=== PATIENT | male | born 1950 | race African-American/Black ===

== ENCOUNTER → 2017-04-19 | Outpatient (CLI) | payer MEDICARE ==
[2017-04-19 12:22] LABS: HEMATOCRIT 47.1 % (42.0-52.0); HEMOGLOBIN 15.1 g/dl (14.0-18.0); MEAN CORPUSCULAR HEMOGLOBIN 28.1 pg (27.0-33.0); MEAN CORPUSCULAR HGB CONC 32.1 g/dl (32.0-36.5); MEAN CORPUSCULAR VOLUME 87.7 fl (80.0-96.0); PLATELET COUNT, AUTOMATED 217 10^3/uL (150-450); RED BLOOD COUNT 5.37 10^6/uL (4.30-6.10); RED CELL DISTRIBUTION WIDTH 13.3 % (11.5-14.5); WHITE BLOOD COUNT 8.7 10^3/uL (4.0-10.0)
[2017-04-19 12:57] LABS: TESTOSTERONE 82 NG/DL (241-827)
[2017-04-19 13:15] LABS: ALBUMIN 3.9 GM/DL (3.2-5.2); ALBUMIN/GLOBULIN RATIO 1.03 (1.00-1.93); ALKALINE PHOSPHATASE 86 U/L (45-117); ALT/SGPT 27 U/L (12-78); ANION GAP 8 MEQ/L (8-16); AST/SGOT 22 U/L (7-37); BILIRUBIN,TOTAL 0.7 MG/DL (0.2-1.0); BLOOD UREA NITROGEN 23 MG/DL (7-18); CALCIUM LEVEL 9.1 MG/DL (8.8-10.2); CARBON DIOXIDE LEVEL 28 MEQ/L (21-32); CHLORIDE LEVEL 107 MEQ/L (98-107); CHOLESTEROL LEVEL 239 MG/DL (<200); CHOLESTEROL RISK RATIO 3.567 (<5); CREATININE FOR GFR 1.34 MG/DL (0.70-1.30); GLOMERULAR FILTRATION RATE > 60.0 (>49); GLUCOSE, FASTING 91 MG/DL (80-110); HDL CHOLESTEROL 67 MG/DL (>40); NON-HDL-C 172 MG/DL; POTASSIUM SERUM 3.9 MEQ/L (3.5-5.1); PROSTATIC SPECIFIC AG MONITOR 0.45 NG/ML (< 4.0); SODIUM LEVEL 143 MEQ/L (136-145); THYROID STIMULATING HORMONE 0.775 uIU/ML (0.358-3.740); TOTAL PROTEIN 7.7 GM/DL (6.4-8.2); TRIGLYCERIDES LEVEL 100 MG/DL (<150)
[2017-04-19 13:32] LABS: TOTAL 25(OH) VITAMIN D 9.8 NG/ML (30.0-100.0)
[2017-04-19 13:34] LABS: ESTIMATED AVERAGE GLUCOSE 143 MG/DL (60-110); HEMOGLOBIN A1c 6.6 %
== END ==
LOC: M LAB 11:13
DX: I10 Essential (primary) hypertension (principal); R53.83 Other fatigue; N40.0 Benign prostatic hyperplasia without lower urinary tract symptoms
CPT/HCPCS: 71046

== ENCOUNTER → 2017-08-07 | Outpatient (CLI) | payer MEDICARE ==
[2017-08-07 16:05] LABS: PROSTATIC SPECIFIC AG MONITOR 0.73 NG/ML (< 4.0)
[2017-08-07 16:45] LABS: TESTOSTERONE 918 NG/DL (241-827)
== END ==
LOC: M LAB 14:25
DX: R53.83 Other fatigue (principal); N40.0 Benign prostatic hyperplasia without lower urinary tract symptoms; E29.1 Testicular hypofunction
CPT/HCPCS: 84403

== ENCOUNTER → 2018-05-28 | Outpatient (CLI) | payer MEDICARE ==
[2018-05-28 10:37] LABS: PROSTATIC SPECIFIC AG MONITOR 0.74 NG/ML (< 4.00)
== END ==
LOC: M LAB 09:22
PROVIDERS: ATTEND Family Medicine
DX: E29.1 Testicular hypofunction (principal)
CPT/HCPCS: 36415; 84403; G0103

== ENCOUNTER → 2018-11-11 | Outpatient (CLI) | payer MEDICARE ==
[2018-11-11 10:53] LABS: PROSTATIC SPECIFIC AG MONITOR 0.85 NG/ML (< 4.00)
== END ==
LOC: M LAB 09:39
PROVIDERS: ATTEND Family Medicine
DX: E29.1 Testicular hypofunction (principal)

== ENCOUNTER → 2019-02-03 | Outpatient (CLI) | payer MEDICARE ==
--- NOTE | 2019-02-03 12:49 | REP ---
Six views lumbar spine: 02/03/2019. Indication: Low back pain. Comparison: 07/18/2011. Findings: There is no acute fracture, subluxation or dislocation. No osseous destructive lesions are detected. Osseous alignment is anatomic. Impression: No acute osseous injury of the lumbar spine. Electronically Signed by Lester Lyn DO 02/03/2019 12:40 P
== END ==
LOC: M RAD 10:12
PROVIDERS: ATTEND Family Medicine
DX: M54.5 Low back pain (principal)

== ENCOUNTER → 2019-02-17 | Outpatient (CLI) | payer MEDICARE ==
[2019-02-17 11:19] LABS: PROSTATIC SPECIFIC AG MONITOR 0.94 NG/ML (< 4.00)
== END ==
LOC: M LAB 10:04
PROVIDERS: ATTEND Family Medicine
DX: R53.83 Other fatigue (principal); N40.0 Benign prostatic hyperplasia without lower urinary tract symptoms; E03.9 Hypothyroidism, unspecified

== ENCOUNTER → 2019-05-26 | Outpatient (CLI) | payer MEDICARE ==
--- NOTE | 2019-05-26 10:58 | REP ---
Clinical: Back pain. Sciatica. Technique: AP, lateral, bilateral oblique and coned-down views of the lumbosacral spine. Findings: Alignment and lordosis maintained without acute fracture / compression injury or subluxation. Moderate/early advanced multilevel degenerative changes include endplate sclerosis, osteophytosis, and hypertrophic facet changes. Disc space narrowing at L5-S1 is also appreciated. Impression: Moderate/early advanced multilevel degenerative spondylosis Electronically Signed by Jd Vaz MD 05/26/2019 10:49 A
== END ==
LOC: M RAD 09:53
PROVIDERS: ATTEND Family Medicine
DX: M47.816 Spondylosis without myelopathy or radiculopathy, lumbar region (principal)

== ENCOUNTER → 2020-03-04 | Outpatient (CLI) | payer MEDICARE ==
[2020-03-04 12:44] LABS: HEMATOCRIT 60.3 % (42.0-52.0); HEMOGLOBIN 19.2 g/dl (13.5-17.5); MEAN CORPUSCULAR HEMOGLOBIN 28.6 pg (27.0-33.0); MEAN CORPUSCULAR HGB CONC 31.8 g/dl (32.0-36.5); MEAN CORPUSCULAR VOLUME 89.9 fl (80.0-96.0); PLATELET COUNT, AUTOMATED 181 10^3/uL (150-450); RED BLOOD COUNT 6.71 10^6/uL (4.30-6.10); WHITE BLOOD COUNT 8.4 10^3/uL (4.0-10.0)
[2020-03-04 13:08] LABS: ALBUMIN 3.8 GM/DL (3.2-5.2); ALT/SGPT 30 U/L (12-78); BILIRUBIN,TOTAL 0.8 MG/DL (0.2-1.0); BLOOD UREA NITROGEN 20 MG/DL (7-18); CALCIUM LEVEL 9.3 MG/DL (8.8-10.2); CARBON DIOXIDE LEVEL 28 MEQ/L (21-32); CHLORIDE LEVEL 107 MEQ/L (98-107); CHOLESTEROL LEVEL 263 MG/DL (<200); CHOLESTEROL RISK RATIO 4.534 (<5); CREATININE FOR GFR 1.48 MG/DL (0.70-1.30); GLOMERULAR FILTRATION RATE > 60.0 (>49); GLUCOSE, FASTING 86 MG/DL (70-100); HDL CHOLESTEROL 58 MG/DL (>40); LDL CHOLESTEROL 191 MG/DL (<100); NON-HDL-C 205 MG/DL; POTASSIUM SERUM 4.1 MEQ/L (3.5-5.1); PROSTATIC SPECIFIC AG MONITOR 0.81 NG/ML (< 4.00); SODIUM LEVEL 141 MEQ/L (136-145); TESTOSTERONE 991 NG/DL (241-827); TOTAL PROTEIN 7.4 GM/DL (6.4-8.2); TRIGLYCERIDES LEVEL 72 MG/DL (<150)
== END ==
LOC: M LAB 11:48
PROVIDERS: ATTEND Family Medicine
DX: I10 Essential (primary) hypertension (principal); R53.83 Other fatigue; E03.9 Hypothyroidism, unspecified; N40.0 Benign prostatic hyperplasia without lower urinary tract symptoms

== ENCOUNTER → 2020-05-12 | Outpatient (CLI) | payer MEDICARE | LOC: M LAB 11:55 | PROVIDERS: ATTEND Family Medicine | DX: M54.40 Lumbago with sciatica, unspecified side (principal); Z79.899 Other long term (current) drug therapy ==

== ENCOUNTER → 2020-07-12 | Outpatient (CLI) | payer MEDICARE ==
[2020-07-12 12:19] LABS: HEMATOCRIT 49.1 % (42.0-52.0); HEMOGLOBIN 15.5 g/dl (13.5-17.5); MEAN CORPUSCULAR HEMOGLOBIN 28.2 pg (27.0-33.0); MEAN CORPUSCULAR HGB CONC 31.6 g/dl (32.0-36.5); MEAN CORPUSCULAR VOLUME 89.4 fl (80.0-96.0); PLATELET COUNT, AUTOMATED 191 10^3/uL (150-450); RED BLOOD COUNT 5.49 10^6/uL (4.30-6.10); WHITE BLOOD COUNT 7.7 10^3/uL (4.0-10.0)
[2020-07-12 12:53] LABS: ALBUMIN 3.8 GM/DL (3.2-5.2); ALT/SGPT 26 U/L (12-78); BILIRUBIN,TOTAL 0.4 MG/DL (0.2-1.0); BLOOD UREA NITROGEN 15 MG/DL (7-18); CALCIUM LEVEL 9.5 MG/DL (8.8-10.2); CARBON DIOXIDE LEVEL 29 MEQ/L (21-32); CHLORIDE LEVEL 107 MEQ/L (98-107); CHOLESTEROL LEVEL 252 MG/DL (<200); CHOLESTEROL RISK RATIO 3.761 (<5); CREATININE FOR GFR 1.39 MG/DL (0.70-1.30); GLOMERULAR FILTRATION RATE > 60.0 (>49); GLUCOSE, FASTING 86 MG/DL (70-100); HDL CHOLESTEROL 67 MG/DL (>40); LDL CHOLESTEROL 165 MG/DL (<100); NON-HDL-C 185 MG/DL; POTASSIUM SERUM 3.8 MEQ/L (3.5-5.1); PROSTATIC SPECIFIC AG MONITOR 0.54 NG/ML (< 4.00); SODIUM LEVEL 141 MEQ/L (136-145); TESTOSTERONE 435 NG/DL (241-827); TOTAL PROTEIN 7.4 GM/DL (6.4-8.2); TRIGLYCERIDES LEVEL 102 MG/DL (<150)
[2020-07-12 13:28] LABS: HEMOGLOBIN A1c 6.3 %
== END ==
LOC: M LAB 11:41
PROVIDERS: ATTEND Family Medicine
DX: R53.83 Other fatigue (principal); I10 Essential (primary) hypertension; E11.9 Type 2 diabetes mellitus without complications; N40.0 Benign prostatic hyperplasia without lower urinary tract symptoms

== ENCOUNTER → 2021-01-07 | Outpatient (CLI) | payer MEDICARE ==
[2021-01-07 12:16] LABS: HEMATOCRIT 53.5 % (42.0-52.0); HEMOGLOBIN 16.9 g/dl (13.5-17.5); MEAN CORPUSCULAR HGB CONC 31.6 g/dl (32.0-36.5); MEAN CORPUSCULAR VOLUME 85.6 fl (80.0-96.0); PLATELET COUNT, AUTOMATED 198 10^3/uL (150-450); RED BLOOD COUNT 6.25 10^6/uL (4.30-6.10); WHITE BLOOD COUNT 9.1 10^3/uL (4.0-10.0)
[2021-01-07 12:55] LABS: ALBUMIN 3.8 GM/DL (3.2-5.2); ALT/SGPT 35 U/L (12-78); BILIRUBIN,TOTAL 0.6 MG/DL (0.2-1.0); BLOOD UREA NITROGEN 19 MG/DL (7-18); CALCIUM LEVEL 9.6 MG/DL (8.8-10.2); CARBON DIOXIDE LEVEL 30 MEQ/L (21-32); CHLORIDE LEVEL 107 MEQ/L (98-107); CHOLESTEROL LEVEL 252 MG/DL (<200); CHOLESTEROL RISK RATIO 3.937 (<5); CREATININE FOR GFR 1.38 MG/DL (0.70-1.30); GLOMERULAR FILTRATION RATE > 60.0 (>49); GLUCOSE, FASTING 77 MG/DL (70-100); HDL CHOLESTEROL 64 MG/DL (>40); LDL CHOLESTEROL 168 MG/DL (<100); NON-HDL-C 188 MG/DL; POTASSIUM SERUM 4.2 MEQ/L (3.5-5.1); PROSTATIC SPECIFIC AG MONITOR 0.68 NG/ML (< 4.00); SODIUM LEVEL 143 MEQ/L (136-145); TESTOSTERONE 747 NG/DL (241-827); TOTAL 25(OH) VITAMIN D 72.1 NG/ML (30.0-100.0); TOTAL PROTEIN 7.4 GM/DL (6.4-8.2); TRIGLYCERIDES LEVEL 98 MG/DL (<150)
[2021-01-07 12:58] LABS: HEMOGLOBIN A1c 6.1 %
== END ==
LOC: M LAB 11:23
PROVIDERS: ATTEND Family Medicine
DX: E03.9 Hypothyroidism, unspecified (principal); R53.83 Other fatigue; I10 Essential (primary) hypertension; Z79.899 Other long term (current) drug therapy

== ENCOUNTER → 2021-10-11 | Outpatient (CLI) | payer MEDICARE ==
[2021-10-11 09:42] LABS: HEMATOCRIT 57.4 % (42.0-52.0); HEMOGLOBIN 18.3 g/dl (13.5-17.5); MEAN CORPUSCULAR HEMOGLOBIN 29.5 pg (27.0-33.0); MEAN CORPUSCULAR HGB CONC 31.9 g/dl (32.0-36.5); MEAN CORPUSCULAR VOLUME 92.4 fl (80.0-96.0); PLATELET COUNT, AUTOMATED 182 10^3/uL (150-450); RED BLOOD COUNT 6.21 10^6/uL (4.30-6.10); WHITE BLOOD COUNT 7.8 10^3/uL (4.0-10.0)
[2021-10-11 10:45] LABS: ALBUMIN 3.7 GM/DL (3.2-5.2); ALT/SGPT 31 U/L (12-78); BILIRUBIN,TOTAL 0.6 MG/DL (0.2-1.0); BLOOD UREA NITROGEN 20 MG/DL (7-18); CALCIUM LEVEL 9.5 MG/DL (8.8-10.2); CARBON DIOXIDE LEVEL 27 MEQ/L (21-32); CHLORIDE LEVEL 113 MEQ/L (98-107); CHOLESTEROL LEVEL 263 MG/DL (<200); CREATININE FOR GFR 1.35 MG/DL (0.70-1.30); GLOMERULAR FILTRATION RATE > 60.0 (>42); GLUCOSE, FASTING 96 MG/DL (70-100); HDL CHOLESTEROL 54 MG/DL (>40); LDL CHOLESTEROL 186 MG/DL (<100); NON-HDL-C 209 MG/DL; POTASSIUM SERUM 4.4 MEQ/L (3.5-5.1); PROSTATIC SPECIFIC AG MONITOR 1.23 NG/ML (< 4.00); SODIUM LEVEL 146 MEQ/L (136-145); THYROID STIMULATING HORMONE 0.724 uIU/ML (0.358-3.740); TRIGLYCERIDES LEVEL 116 MG/DL (<150)
[2021-10-11 10:54] LABS: HEMOGLOBIN A1c 5.8 %
[2021-10-11 11:39] LABS: TESTOSTERONE 507 NG/DL (241-827)
== END ==
LOC: M LAB 08:55
PROVIDERS: ATTEND Family Medicine
DX: I10 Essential (primary) hypertension (principal); R97.20 Elevated prostate specific antigen [PSA]

== ENCOUNTER → 2022-01-20 | Outpatient (CLI) | payer MEDICARE ==
[~2022-01-20] MED LIST: ISOVUE-300 61% 50ML VIAL As Ordered ONE; LIDOCAINE 1% MDV 20ML VIAL As Ordered ONE; TRIAMCINOLONE ACETONIDE SUSP 40 MG/ML VIAL (J3301) As Ordered ONE
== END ==
LOC: M RAD 10:17
PROVIDERS: ATTEND Orthopaedic Surgery
DX: M16.0 Bilateral primary osteoarthritis of hip (principal)
CPT/HCPCS: 76000; J3301; Q9967

== ENCOUNTER → 2022-05-10 | Outpatient (CLI) | payer MEDICARE ==
[2022-05-10 10:50] LABS: HEMATOCRIT 57.4 % (42.0-52.0); HEMOGLOBIN 18.4 g/dl (13.5-17.5); MEAN CORPUSCULAR HEMOGLOBIN 29.6 pg (27.0-33.0); MEAN CORPUSCULAR HGB CONC 32.1 g/dl (32.0-36.5); MEAN CORPUSCULAR VOLUME 92.4 fl (80.0-96.0); PLATELET COUNT, AUTOMATED 177 10^3/uL (150-450); RED BLOOD COUNT 6.21 10^6/uL (4.30-6.10); WHITE BLOOD COUNT 8.3 10^3/uL (4.0-10.0)
[2022-05-10 11:10] LABS: HEMOGLOBIN A1c 5.9 % (4.0-6.0)
[2022-05-10 11:17] LABS: PROSTATIC SPECIFIC AG MONITOR 0.86 NG/ML (< 4.00)
[2022-05-10 11:21] LABS: THYROID STIMULATING HORMONE 0.588 uIU/ML (0.55-4.78)
[2022-05-10 11:22] LABS: ALBUMIN 3.9 G/DL (3.2-5.2); ALKALINE PHOSPHATASE 100 U/L (46-116); ALT/SGPT 25 U/L (7.0-40); AST/SGOT 25 U/L (<34); BILIRUBIN,TOTAL 0.7 MG/DL (0.3-1.2); BLOOD UREA NITROGEN 17 MG/DL (9-23); CALCIUM LEVEL 9.7 MG/DL (8.3-10.6); CARBON DIOXIDE LEVEL 30 MMOL/L (20-31); CHLORIDE LEVEL 108 MMOL/L (98-107); CHOLESTEROL LEVEL 250 MG/DL (<200); CHOLESTEROL RISK RATIO 4.75 (<5); CREATININE FOR GFR 1.29 MG/DL (0.70-1.30); GLOMERULAR FILTRATION RATE > 60.0 (>42); GLUCOSE, FASTING 99 MG/DL (74-106); HDL CHOLESTEROL 52.6 MG/DL (>40); LDL CHOLESTEROL 174.6 MG/DL (<100); NON-HDL-C 197 MG/DL; POTASSIUM SERUM 4.2 MMOL/L (3.5-5.1); SODIUM LEVEL 144 MMOL/L (136-145); TESTOSTERONE 672 NG/DL (241-827); TOTAL PROTEIN 6.9 G/DL (5.7-8.2); TRIGLYCERIDES LEVEL 114 MG/DL (<150)
== END ==
LOC: M LAB 10:23
PROVIDERS: ATTEND Family Medicine
DX: E11.9 Type 2 diabetes mellitus without complications (principal); I10 Essential (primary) hypertension; E07.9 Disorder of thyroid, unspecified; R97.20 Elevated prostate specific antigen [PSA]

== ENCOUNTER → 2022-07-12 | Outpatient (CLI) | payer MEDICARE | LOC: M RAD 09:48 | PROVIDERS: ATTEND Family Medicine | DX: I10 Essential (primary) hypertension (principal); M16.12 Unilateral primary osteoarthritis, left hip ==

== ENCOUNTER → 2022-08-02 | Outpatient (CLI) | payer MEDICARE | LOC: M SOG 07:56 | PROVIDERS: ATTEND Orthopaedic Surgery | DX: M25.559 Pain in unspecified hip (principal) ==

== ENCOUNTER → 2022-08-16 | Outpatient (CLI) | payer MEDICARE | LOC: M PLAIMG 10:15 | PROVIDERS: ATTEND Orthopaedic Surgery | DX: M19.90 Unspecified osteoarthritis, unspecified site (principal) ==

== ENCOUNTER → 2022-09-18 | Outpatient (CLI) | payer MEDICARE ==
[~2022-09-18] MED LIST changes: +ERGO500029 PO; +HYDR-3716 PO; +IBUP200C28 PO; -ISOVUE-300 61% 50ML VIAL As Ordered ONE; -LIDOCAINE 1% MDV 20ML VIAL As Ordered ONE; +LISI10TA22 PO; +MELO7.5T35 PO; -TRIAMCINOLONE ACETONIDE SUSP 40 MG/ML VIAL (J3301) As Ordered ONE
[2022-09-18 11:17] LABS: HEMATOCRIT 56.1 % (42.0-52.0); HEMOGLOBIN 17.8 g/dl (13.5-17.5); MEAN CORPUSCULAR HEMOGLOBIN 28.6 pg (27.0-33.0); MEAN CORPUSCULAR HGB CONC 31.7 g/dl (32.0-36.5); PLATELET COUNT, AUTOMATED 193 10^3/uL (150-450); RED BLOOD COUNT 6.23 10^6/uL (4.30-6.10); WHITE BLOOD COUNT 8.9 10^3/uL (4.0-10.0)
[2022-09-18 11:29] LABS: INR 0.96
[2022-09-18 11:36] LABS: PROSTATIC SPECIFIC AG MONITOR 0.71 NG/ML (< 4.00)
[2022-09-18 11:42] LABS: THYROID STIMULATING HORMONE 1.236 uIU/ML (0.55-4.78)
[2022-09-18 11:43] LABS: ALBUMIN 4.2 G/DL (3.2-5.2); ALKALINE PHOSPHATASE 98 U/L (46-116); ALT/SGPT 35 U/L (7.0-40); AST/SGOT 24 U/L (<34); BILIRUBIN,TOTAL 0.9 MG/DL (0.3-1.2); BLOOD UREA NITROGEN 25 MG/DL (9-23); CALCIUM LEVEL 9.7 MG/DL (8.3-10.6); CARBON DIOXIDE LEVEL 30 MMOL/L (20-31); CHLORIDE LEVEL 106 MMOL/L (98-107); CHOLESTEROL LEVEL 275 MG/DL (<200); CHOLESTEROL RISK RATIO 4.48 (<5); CREATININE FOR GFR 1.32 MG/DL (0.70-1.30); GLOMERULAR FILTRATION RATE > 60.0 (>42); GLUCOSE, FASTING 81 MG/DL (74-106); HDL CHOLESTEROL 61.3 MG/DL (>40); LDL CHOLESTEROL 190.3 MG/DL (<100); NON-HDL-C 213.7 MG/DL; POTASSIUM SERUM 4.3 MMOL/L (3.5-5.1); SODIUM LEVEL 143 MMOL/L (136-145); TOTAL PROTEIN 7.2 G/DL (5.7-8.2); TRIGLYCERIDES LEVEL 117 MG/DL (<150)
[2022-09-18 11:49] LABS: HEMOGLOBIN A1c 6.2 % (4.0-6.0)
== END ==
LOC: M RAD 10:27
PROVIDERS: ATTEND Family Medicine
DX: I10 Essential (primary) hypertension (principal); Z79.01 Long term (current) use of anticoagulants; R97.20 Elevated prostate specific antigen [PSA]

== ENCOUNTER 2022-10-03 09:18 | Observation (INO) | payer MEDICARE ==
[~2022-10-03] VITALS: Ht 175.3 cm; Wt 91.6 kg
[2022-10-03] VITALS (7 sets, daily range): BP systolic 140–152; BP diastolic 89–94; TEMP 97.2–97.9; O2SAT 95–98
[~2022-10-03 09:18] MED LIST changes: +ROPIVA 100MG/KETOR 15MG/EPINEPHRINE 0.3MG IN NS 50ML SYRINGE PA ONE; +TRANEXAMIC ACID INJection 1,000 MG in NS 100 ML IV ONE; +ceFAZolin SOD 2 GM in IV 1 EA IV ONE; +oxyCODONE 5MG TAB PO ONE
[2022-10-03] MEDS ORDERED: LR 1,000 ML IV SCH ×2 (09:45→14:20)
[2022-10-03] MEDS ORDERED: LIDOCAINE 2% 100MG/5ML SDV (FOR ANES.) As Ordered ONE (10:38)
[2022-10-03] MEDS ORDERED: fentaNYL 100 MCG/2 ML INJECTION As Ordered ONE (10:38)
[2022-10-03] MEDS ORDERED: propofoL 500 MG/50 ML VIAL As Ordered ONE (10:38)
[2022-10-03] MEDS ORDERED: MIDAZOLAM INJ 2MG/2ML VIAL As Ordered ONE (10:39)
[2022-10-03] MEDS ORDERED: TRANEXAMIC ACID 100 MG/ML 10ML VIAL As Ordered ONE ×2 (10:44→10:45)
[2022-10-03] MEDS ORDERED: ROCURONIUM BROMIDE 50MG/5ML VIAL As Ordered ONE (11:36)
[2022-10-03] MEDS ORDERED: HYDROmorphone HCL 2MG/ML 1ML VIAL As Ordered ONE (12:32)
[2022-10-03] MEDS ORDERED: ONDANSETRON 4MG 2ML VIAL As Ordered ONE (12:43)
[2022-10-03] MEDS ORDERED: ACETAMINOPHEN 1000MG 100ML IV BAG As Ordered ONE (13:43)
[2022-10-03] MEDS ORDERED: VANCOMYCIN 1000MG/20ML VIAL As Ordered ONE (14:02)
[2022-10-03] MEDS ORDERED: METOCLOPRAMIDE INJ 10MG/2ML VIAL IV PRN (14:20)
[2022-10-03] MEDS ORDERED: ONDANSETRON 4MG 2ML VIAL IV PRN ×3 (14:20→15:20)
[2022-10-03] MEDS: oxyCODONE 5MG TAB PO PRN ×2 (14:42→15:23)
[2022-10-03] MEDS: fentaNYL 100 MCG/2 ML INJECTION IV PRN ×4 (14:42→15:09)
[2022-10-03] MEDS: LR 1,000 ML IV SCH (14:45)
[2022-10-03] MEDS ORDERED: SENNA 8.6 MG TAB (SENOKOT) PO PRN (14:45)
[2022-10-03] MEDS ORDERED: oxyCODONE 5MG TAB PO PRN ×2 (14:45)
[2022-10-03] MEDS ORDERED: LABETALOL 100MG/20ML VIAL IV PRN (14:55)
[2022-10-03] MEDS ORDERED: LABETALOL 100MG/20ML VIAL As Ordered ONE (15:00)
[2022-10-03] MEDS: MORPHINE 2 MG/ML 1ML VIAL IV PRN ×3 (15:14→15:29)
[2022-10-03] MEDS ORDERED: EPIDURAL/PCA KEYS XX PRN (15:20)
[2022-10-03] MEDS ORDERED: NS 1,000 ML IV SCH (15:20)
[2022-10-03] MEDS ORDERED: diphenhydrAMINE 50MG/ML VIAL IV PRN (15:20)
[2022-10-03] MEDS ORDERED: NALOXONE INJ 0.4MG/1ML VIAL IV PRN (15:20)
[2022-10-03] MEDS ORDERED: MORPHINE 1MG/ML IN 0.9% NACL 100ML IV BAG IV PRN (16:00)
[2022-10-03] MEDS: ceFAZolin SOD 2 GM in IV 1 EA IV SCH (18:35)
[2022-10-03] MEDS: DOCUSATE SODIUM 100MG CAPSULE PO SCH (21:00)
[2022-10-03] MEDS: ACETAMINOPHEN TAB 650MG DOSE (2X325MG) PO SCH (21:54)
[2022-10-03] MEDS ORDERED: TEST200I14 IM (22:44)
[2022-10-03] MEDS ORDERED: IBUP-1720 PO (22:44)
[2022-10-03] MEDS ORDERED: HOME MED LIST COMPLETE! XX SCH (22:45)
[2022-10-04] VITALS (7 sets, daily range): BP systolic 127–154; BP diastolic 64–84; TEMP 97.5–98.3; O2SAT 92–98
[2022-10-04] MEDS: LR 1,000 ML IV SCH (03:07)
[2022-10-04] MEDS: ACETAMINOPHEN TAB 650MG DOSE (2X325MG) PO SCH ×2 (03:08→09:07)
[2022-10-04] MEDS: ceFAZolin SOD 2 GM in IV 1 EA IV SCH (03:44)
[2022-10-04 05:44] LABS: HEMATOCRIT 45.9 % (42.0-52.0); HEMOGLOBIN 14.6 g/dl (13.5-17.5); MEAN CORPUSCULAR HEMOGLOBIN 29.2 pg (27.0-33.0); MEAN CORPUSCULAR HGB CONC 31.8 g/dl (32.0-36.5); MEAN CORPUSCULAR VOLUME 91.8 fl (80.0-96.0); PLATELET COUNT, AUTOMATED 163 10^3/uL (150-450); WHITE BLOOD COUNT 12.4 10^3/uL (4.0-10.0)
[2022-10-04 06:23] LABS: ALBUMIN 3.1 G/DL (3.2-5.2); ALKALINE PHOSPHATASE 80 U/L (46-116); ALT/SGPT 29 U/L (7.0-40); AST/SGOT 36 U/L (<34); BILIRUBIN,TOTAL 0.7 MG/DL (0.3-1.2); BLOOD UREA NITROGEN 31 MG/DL (9-23); CALCIUM LEVEL 8.5 MG/DL (8.3-10.6); CARBON DIOXIDE LEVEL 26 MMOL/L (20-31); CHLORIDE LEVEL 107 MMOL/L (98-107); CREATININE FOR GFR 1.36 MG/DL (0.70-1.30); GLOMERULAR FILTRATION RATE > 60.0 (>42); GLUCOSE, FASTING 126 MG/DL (74-106); POTASSIUM SERUM 4.8 MMOL/L (3.5-5.1); SODIUM LEVEL 141 MMOL/L (136-145); TOTAL PROTEIN 5.6 G/DL (5.7-8.2)
[2022-10-04 06:46] LABS: INR 1.03; PROTHROMBIN TIME 13.7 SECONDS (12.5-14.5)
[2022-10-04] MEDS ORDERED: RIVAROXABAN 10MG TAB (XARELTO) PO SCH ×2 (09:00→18:00)
[2022-10-04] MEDS: DOCUSATE SODIUM 100MG CAPSULE PO SCH ×2 (09:05→19:38)
[2022-10-04] MEDS ORDERED: HYDR-4517 PO (09:28)
[2022-10-04] MEDS ORDERED: XARE10TA PO (09:28)
[2022-10-04] MEDS ORDERED: ASPI81TA26 PO (09:28)
[2022-10-04] MEDS ORDERED: ACETAMINOPHEN TAB 650MG DOSE (2X325MG) PO PRN (14:10)
[2022-10-04] MEDS ORDERED: ONDANSETRON 4MG 2ML VIAL IV PRN (14:10)
[2022-10-04] MEDS ORDERED: MORPHINE 4 MG/ML 1ML VIAL IV PRN (14:10)
[2022-10-04] MEDS ORDERED: PERCOCET 5MG/325MG TAB PO PRN (14:10)
[2022-10-04] MEDS: PERCOCET 5MG/325MG TAB PO PRN ×2 (15:54→22:04)
[2022-10-05 02:00] VITALS: BP 149/78; TEMP 98.2; O2SAT 97
[2022-10-05] MEDS: PERCOCET 5MG/325MG TAB PO PRN (05:23)
[2022-10-05 05:41] LABS: HEMATOCRIT 41.2 % (42.0-52.0); HEMOGLOBIN 13.1 g/dl (13.5-17.5); MEAN CORPUSCULAR HEMOGLOBIN 29.2 pg (27.0-33.0); MEAN CORPUSCULAR HGB CONC 31.8 g/dl (32.0-36.5); PLATELET COUNT, AUTOMATED 148 10^3/uL (150-450); RED BLOOD COUNT 4.48 10^6/uL (4.30-6.10); WHITE BLOOD COUNT 8.7 10^3/uL (4.0-10.0)
[2022-10-05 06:00] VITALS: BP 116/71; TEMP 97.5; O2SAT 97
[2022-10-05 06:04] LABS: INR 1.35; PROTHROMBIN TIME 16.9 SECONDS (12.5-14.5)
[2022-10-05 07:01] LABS: ALKALINE PHOSPHATASE 76 U/L (46-116); ALT/SGPT 22 U/L (7.0-40); AST/SGOT 45 U/L (<34); BILIRUBIN,TOTAL 0.9 MG/DL (0.3-1.2); BLOOD UREA NITROGEN 24 MG/DL (9-23); CALCIUM LEVEL 8.5 MG/DL (8.3-10.6); CARBON DIOXIDE LEVEL 26 MMOL/L (20-31); CHLORIDE LEVEL 107 MMOL/L (98-107); CREATININE FOR GFR 1.15 MG/DL (0.70-1.30); GLOMERULAR FILTRATION RATE > 60.0 (>42); GLUCOSE, FASTING 133 MG/DL (74-106); POTASSIUM SERUM 4.4 MMOL/L (3.5-5.1); SODIUM LEVEL 139 MMOL/L (136-145); TOTAL PROTEIN 5.5 G/DL (5.7-8.2)
[2022-10-05] MEDS: DOCUSATE SODIUM 100MG CAPSULE PO SCH (08:58)
[2022-10-05 08:59] VITALS: BP 115/71
== END 2022-10-05 14:21 | disposition home or self-care (01) ==
LOC: M SDC 09:18 → M MSPAV 09:19
PROVIDERS: ADMIT Orthopaedic Surgery; ATTEND Orthopaedic Surgery
DX: M16.12 Unilateral primary osteoarthritis, left hip (principal); G89.18 Other acute postprocedural pain; I10 Essential (primary) hypertension; M10.9 Gout, unspecified; M54.9 Dorsalgia, unspecified; F17.290 Nicotine dependence, other tobacco product, uncomplicated; Z79.899 Other long term (current) drug therapy; Z79.891 Long term (current) use of opiate analgesic
CPT/HCPCS: 27130; 36415; 72170; 76000; 80053; 85027; 85610; 88304; 88311; 96361; 96374; 96376; 97116; 97161; 97165; 97530; 97535; C1713; C1776; G0378; J0131; J0690; J1100; J1170; J2250; J2405; J3010

== ENCOUNTER → 2022-10-19 | Outpatient (CLI) | payer MEDICARE ==
[~2022-10-19] MED LIST changes: +ASPI81TA26 PO; +HYDR-4517 PO; +IBUP-1720 PO; -ROPIVA 100MG/KETOR 15MG/EPINEPHRINE 0.3MG IN NS 50ML SYRINGE PA ONE; +TEST200I14 IM; -TRANEXAMIC ACID INJection 1,000 MG in NS 100 ML IV ONE; +XARE10TA PO; -ceFAZolin SOD 2 GM in IV 1 EA IV ONE; -oxyCODONE 5MG TAB PO ONE
== END ==
LOC: M SOG 08:48
PROVIDERS: ATTEND Orthopaedic Surgery
DX: Z47.1 Aftercare following joint replacement surgery (principal)

== ENCOUNTER → 2022-11-27 | Outpatient (CLI) | payer MEDICARE | LOC: M SOG 11-24 14:32 | PROVIDERS: ATTEND Orthopaedic Surgery | DX: Z47.1 Aftercare following joint replacement surgery (principal); Z96.642 Presence of left artificial hip joint ==

== ENCOUNTER 2023-01-30 06:10 | Observation (INO) | payer MEDICARE ==
[~2023-01-30] VITALS: Ht 175.3 cm; Wt 93.5 kg
[2023-01-30] VITALS (9 sets, daily range): BP systolic 126–143; BP diastolic 66–94; TEMP 97–97.7; O2SAT 96–99
[~2023-01-30 06:10] MED LIST changes: +ATOR80TA59 PO; +ECOT81TA5 PO; +LAXA15TA PO; +LISI20TA33 PO; +ROPIVA 100MG/KETOR 15MG/EPINEPHRINE 0.3MG IN NS 50ML SYRINGE PA ONE; +ceFAZolin SOD 2 GM in IV 1 EA IV ONE
[2023-01-30] MEDS ORDERED: VANCOMYCIN 1000MG/20ML VIAL As Ordered ONE (06:25)
[2023-01-30] MEDS ORDERED: TRANEXAMIC ACID 100 MG/ML 10ML VIAL As Ordered ONE (06:25)
[2023-01-30] MEDS ORDERED: LR 1,000 ML IV SCH ×2 (06:30→10:50)
[2023-01-30] MEDS ORDERED: ECOT81TA5 PO (06:33)
[2023-01-30] MEDS ORDERED: HYDR-3716 PO (06:48)
[2023-01-30] MEDS ORDERED: MIDAZOLAM INJ 2MG/2ML VIAL As Ordered ONE (07:20)
[2023-01-30] MEDS ORDERED: SENN-188 PO (07:32)
[2023-01-30] MEDS ORDERED: MUPI2OI NARES (07:32)
[2023-01-30] MEDS ORDERED: ROCURONIUM BROMIDE 50MG/5ML VIAL As Ordered ONE (07:33)
[2023-01-30] MEDS ORDERED: LIDOCAINE 2% 100MG/5ML SDV (FOR ANES.) As Ordered ONE (07:33)
[2023-01-30] MEDS ORDERED: fentaNYL 250 MCG/5 ML INJECTION As Ordered ONE (07:33)
[2023-01-30] MEDS ORDERED: propofoL 200 MG/20 ML VIAL As Ordered ONE (07:34)
[2023-01-30] MEDS ORDERED: HOME MED LIST COMPLETE! XX SCH (07:40)
[2023-01-30] MEDS ORDERED: HYDROmorphone HCL 2MG/ML 1ML VIAL As Ordered ONE (08:41)
[2023-01-30] MEDS ORDERED: SUGAMMADEX SODIUM 500 MG/5 ML VIAL (BRIDION) As Ordered ONE (08:52)
[2023-01-30] MEDS ORDERED: ACETAMINOPHEN 1000MG 100ML IV BAG As Ordered ONE ×2 (08:52→14:01)
[2023-01-30] MEDS ORDERED: ONDANSETRON 4MG 2ML VIAL As Ordered ONE (08:53)
[2023-01-30] MEDS ORDERED: KETOROLAC 60MG 2ML VIAL As Ordered ONE (08:53)
[2023-01-30] MEDS ORDERED: LABETALOL 100MG/20ML VIAL As Ordered ONE (09:06)
[2023-01-30] MEDS ORDERED: SENNA 8.6 MG TAB (SENOKOT) PO PRN (10:50)
[2023-01-30] MEDS ORDERED: ONDANSETRON 4MG 2ML VIAL IV PRN ×2 (10:50)
[2023-01-30] MEDS ORDERED: NAPROXEN 250 MG TAB PO SCH (10:50)
[2023-01-30] MEDS ORDERED: oxyCODONE 5MG TAB PO PRN (10:50)
[2023-01-30] MEDS: oxyCODONE 5MG TAB PO PRN ×2 (11:02→11:42)
[2023-01-30] MEDS: MORPHINE 2 MG/ML 1ML VIAL IV PRN ×5 (11:03→11:48)
[2023-01-30] MEDS: fentaNYL 100 MCG/2 ML INJECTION IV PRN ×4 (11:15→11:30)
[2023-01-30] MEDS: ACETAMINOPHEN TAB 650MG DOSE (2X325MG) PO SCH ×3 (14:12→23:26)
[2023-01-30] MEDS: ceFAZolin SOD 2 GM in IV 1 EA IV SCH ×2 (15:42→23:27)
[2023-01-30] MEDS: ASCORBIC ACID 500 MG TAB PO SCH (15:44)
[2023-01-30] MEDS: FERROUS SULFATE 325MG TAB PO SCH (15:44)
[2023-01-30] MEDS: DOCUSATE SODIUM 100MG CAPSULE PO SCH ×2 (20:02→20:08)
[2023-01-30] MEDS: CelecoXIB (CeleBREX) 100 MG CAP PO SCH (20:02)
[2023-01-31] MEDS: oxyCODONE 5MG TAB PO PRN ×3 (00:36→10:08)
[2023-01-31 03:30] VITALS: BP 144/78; TEMP 97.7; O2SAT 98
[2023-01-31] MEDS: ACETAMINOPHEN TAB 650MG DOSE (2X325MG) PO SCH (05:24)
[2023-01-31 05:49] VITALS: BP 138/76; TEMP 97.3; O2SAT 97
[2023-01-31 06:24] LABS: HEMOGLOBIN 12.3 g/dl (13.5-17.5); MEAN CORPUSCULAR HEMOGLOBIN 28.5 pg (27.0-33.0); MEAN CORPUSCULAR HGB CONC 32.4 g/dl (32.0-36.5); MEAN CORPUSCULAR VOLUME 88.2 fl (80.0-96.0); PLATELET COUNT, AUTOMATED 180 10^3/uL (150-450); RED BLOOD COUNT 4.31 10^6/uL (4.30-6.10); WHITE BLOOD COUNT 10.6 10^3/uL (4.0-10.0)
[2023-01-31 06:34] LABS: INR 1.05; PROTHROMBIN TIME 13.4 SECONDS (12.5-14.5)
[2023-01-31 07:00] LABS: ALBUMIN 2.9 G/DL (3.2-5.2); ALKALINE PHOSPHATASE 89 U/L (46-116); ALT/SGPT 25 U/L (7.0-40); AST/SGOT 38 U/L (<34); BILIRUBIN,TOTAL 0.7 MG/DL (0.3-1.2); BLOOD UREA NITROGEN 22 MG/DL (9-23); CALCIUM LEVEL 8.8 MG/DL (8.3-10.6); CARBON DIOXIDE LEVEL 29 MMOL/L (20-31); CHLORIDE LEVEL 106 MMOL/L (98-107); CREATININE FOR GFR 1.23 MG/DL (0.70-1.30); GLOMERULAR FILTRATION RATE > 60.0 (>42); GLUCOSE, FASTING 112 MG/DL (74-106); POTASSIUM SERUM 4.3 MMOL/L (3.5-5.1); SODIUM LEVEL 142 MMOL/L (136-145); TOTAL PROTEIN 5.7 G/DL (5.7-8.2)
[2023-01-31] MEDS: CelecoXIB (CeleBREX) 100 MG CAP PO SCH (08:07)
[2023-01-31 08:08] VITALS: BP 130/80
[2023-01-31] MEDS: ASCORBIC ACID 500 MG TAB PO SCH (08:08)
[2023-01-31] MEDS: FERROUS SULFATE 325MG TAB PO SCH (08:08)
[2023-01-31] MEDS: DOCUSATE SODIUM 100MG CAPSULE PO SCH (08:09)
[2023-01-31] MEDS ORDERED: ASPIRIN 81MG ENTERIC TABLET PO SCH (09:00)
[2023-01-31] MEDS ORDERED: ASPI81TAEC PO (09:09)
[2023-01-31] MEDS ORDERED: COLA100C5 PO (09:09)
[2023-01-31] MEDS ORDERED: HYDR-4514 PO (09:09)
[2023-01-31] MEDS ORDERED: CELE100C PO (09:09)
[2023-01-31] MEDS ORDERED: SENN-188 PO (09:09)
== END 2023-01-31 11:48 | disposition home health service (06) ==
LOC: M SDC 06:10 → M RR INP 06:11 → M MSPAV 14:23
PROVIDERS: ADMIT Orthopaedic Surgery; ATTEND Orthopaedic Surgery
DX: M16.11 Unilateral primary osteoarthritis, right hip (principal); Z96.642 Presence of left artificial hip joint; I10 Essential (primary) hypertension; M54.50 Low back pain, unspecified; F17.290 Nicotine dependence, other tobacco product, uncomplicated; Z79.899 Other long term (current) drug therapy; Z79.82 Long term (current) use of aspirin
CPT/HCPCS: 27130; 72170; 76000; 80053; 85027; 85610; 87635; 96365; 96376; 97161; 97165; 97530; C1776; G0378; J0131; J0690; J1100; J1170; J1885; J1920; J2250; J2405; J3010

== ENCOUNTER → 2023-02-12 | Outpatient (CLI) | payer MEDICARE ==
[~2023-02-12] MED LIST changes: +ASPI81TAEC PO; +CELE100C PO; +COLA100C5 PO; +HYDR-4514 PO; +MUPI2OI NARES; -ROPIVA 100MG/KETOR 15MG/EPINEPHRINE 0.3MG IN NS 50ML SYRINGE PA ONE; +SENN-188 PO; -ceFAZolin SOD 2 GM in IV 1 EA IV ONE
== END ==
LOC: M SOG 07:52
PROVIDERS: ATTEND Orthopaedic Surgery
DX: Z47.1 Aftercare following joint replacement surgery (principal)

== ENCOUNTER → 2023-02-26 | Outpatient (CLI) | payer MEDICARE | LOC: M SOG 07:50 | PROVIDERS: ATTEND Orthopaedic Surgery | DX: Z47.1 Aftercare following joint replacement surgery (principal); Z96.641 Presence of right artificial hip joint ==

== ENCOUNTER → 2023-04-30 | Outpatient (CLI) | payer MEDICARE | LOC: M SOG 08:09 | PROVIDERS: ATTEND Orthopaedic Surgery | DX: Z96.643 Presence of artificial hip joint, bilateral (principal); Z53.9 Procedure and treatment not carried out, unspecified reason ==

== ENCOUNTER → 2023-10-23 | Outpatient (CLI) | payer MEDICARE | LOC: M SOG 10:27 | PROVIDERS: ATTEND Orthopaedic Surgery | DX: Z96.643 Presence of artificial hip joint, bilateral (principal) ==

== ENCOUNTER → 2023-11-12 | Outpatient (CLI) | payer MEDICARE ==
[2023-11-12 10:25] LABS: BASO % 0.3 % (0.0-1.0); EOS # 0.1 10^3/uL (0.0-0.5); EOS % 1.3 % (0.0-3.0); HEMATOCRIT 49.5 % (42.0-52.0); HEMOGLOBIN 15.2 g/dl (13.5-17.5); MEAN CORPUSCULAR HEMOGLOBIN 25.6 pg (27.0-33.0); MEAN CORPUSCULAR HGB CONC 30.7 g/dl (32.0-36.5); MEAN CORPUSCULAR VOLUME 83.5 fl (80.0-96.0); MONO # 0.7 10^3/uL (0.0-0.8); MONO % 7.5 % (2.0-8.0); NEUTROPHILS # 6.4 10^3/uL (1.5-8.5); NEUTROPHILS % 68.6 % (36.0-66.0); PLATELET COUNT, AUTOMATED 230 10^3/uL (150-450); RED BLOOD COUNT 5.93 10^6/uL (4.30-6.10); WHITE BLOOD COUNT 9.3 10^3/uL (4.0-10.0)
[2023-11-12 10:45] LABS: ERYTHROCYTE SEDIMENTATION RATE 91 mm/hr (0-20)
== END ==
LOC: M LAB 09:28
PROVIDERS: ATTEND Orthopaedic Surgery
DX: Z96.643 Presence of artificial hip joint, bilateral (principal)

== ENCOUNTER → 2024-01-02 | Outpatient (CLI) | payer MEDICARE ==
[~2024-01-02] MED LIST changes: +LIDOCAINE 1% MDV 20ML VIAL As Ordered ONE
[2024-01-02 14:30] LABS: SOURCE, BODY FLUID RT HIP
[2024-01-02 14:31] LABS: SYNOVIAL FLUID COLOR RED (COLORLESS)
== END ==
LOC: M RAD 13:00
PROVIDERS: ATTEND Orthopaedic Surgery
DX: Z96.641 Presence of right artificial hip joint (principal); M25.551 Pain in right hip
CPT/HCPCS: 20610; 77002; 87070; 87077; 87205; J0665

== ENCOUNTER → 2024-01-10 | Outpatient (CLI) | payer MEDICARE, OTHER ==
[~2024-01-10] MED LIST changes: -LIDOCAINE 1% MDV 20ML VIAL As Ordered ONE
[2024-01-10 11:09] LABS: BASO % 0.3 % (0.0-1.0); EOS # 0.1 10^3/uL (0.0-0.5); EOS % 0.8 % (0.0-3.0); HEMATOCRIT 53.7 % (42.0-52.0); HEMOGLOBIN 16.8 g/dl (13.5-17.5); LYMPH # 1.9 10^3/uL (1.5-5.0); LYMPH % 20.3 % (24.0-44.0); MEAN CORPUSCULAR HEMOGLOBIN 26.5 pg (27.0-33.0); MEAN CORPUSCULAR HGB CONC 31.3 g/dl (32.0-36.5); MEAN CORPUSCULAR VOLUME 84.6 fl (80.0-96.0); MONO # 0.7 10^3/uL (0.0-0.8); MONO % 7.2 % (2.0-8.0); NEUTROPHILS # 6.6 10^3/uL (1.5-8.5); PLATELET COUNT, AUTOMATED 222 10^3/uL (150-450); RED BLOOD COUNT 6.35 10^6/uL (4.30-6.10); WHITE BLOOD COUNT 9.3 10^3/uL (4.0-10.0)
[2024-01-10 11:23] LABS: ERYTHROCYTE SEDIMENTATION RATE 71 mm/hr (0-20)
[2024-01-14 15:38] LABS: LYME TOTAL ANTIBODY CIA <= 0.90 Index (<=0.90)
[2024-01-16 13:18] LABS: HLA-B27 Negative (Negative)
== END ==
LOC: M PLALAB 09:14
PROVIDERS: ATTEND Internal Medicine Infectious Disease
DX: M25.551 Pain in right hip (principal); M54.50 Low back pain, unspecified

== ENCOUNTER → 2024-01-23 | Outpatient (CLI) | payer MEDICARE ==
[2024-01-23 15:49] LABS: CALCIUM LEVEL 9.7 MG/DL (8.3-10.6); CREATININE FOR GFR 1.43 MG/DL (0.70-1.30); GLOMERULAR FILTRATION RATE 51.8 (>42); POTASSIUM SERUM 4.1 MMOL/L (3.5-5.1)
== END ==
LOC: M PLALAB 12:28
PROVIDERS: ATTEND Internal Medicine Infectious Disease
DX: M25.551 Pain in right hip (principal)

== ENCOUNTER → 2024-01-24 | Outpatient (CLI) | payer MEDICARE ==
[~2024-01-24] MED LIST changes: +ISOVUE-370 76% 100ML VIAL ONE
== END ==
LOC: M PLAIMG 08:55
PROVIDERS: ATTEND Internal Medicine Infectious Disease
DX: M25.551 Pain in right hip (principal)
CPT/HCPCS: 73701; Q9967

== ENCOUNTER → 2024-02-08 | Outpatient (CLI) | payer MEDICARE ==
[~2024-02-08] MED LIST changes: +ISOVUE-300 61% 100ML VIAL As Ordered ONE; -ISOVUE-370 76% 100ML VIAL ONE; +LIDOCAINE 1% MDV 20ML VIAL As Ordered ONE; +PROHANCE 279.3MG/ML 5ML VIAL As Ordered ONE
[2024-02-08 15:36] LABS: SOURCE, BODY FLUID RT HIP; SYNOVIAL FLUID COLOR RED (COLORLESS)
== END ==
LOC: M RAD 10:59
PROVIDERS: ATTEND Orthopaedic Surgery
DX: M25.551 Pain in right hip (principal); Z96.643 Presence of artificial hip joint, bilateral

== ENCOUNTER → 2024-04-30 | Outpatient (CLI) | payer MEDICARE ==
[~2024-04-30] MED LIST changes: -ISOVUE-300 61% 100ML VIAL As Ordered ONE; -LIDOCAINE 1% MDV 20ML VIAL As Ordered ONE; -PROHANCE 279.3MG/ML 5ML VIAL As Ordered ONE
[2024-04-30 12:53] LABS: HEMATOCRIT 55.8 % (42.0-52.0); HEMOGLOBIN 17.4 g/dl (13.5-17.5); MEAN CORPUSCULAR HEMOGLOBIN 26.5 pg (27.0-33.0); MEAN CORPUSCULAR HGB CONC 31.2 g/dl (32.0-36.5); MEAN CORPUSCULAR VOLUME 85.1 fl (80.0-96.0); PLATELET COUNT, AUTOMATED 207 10^3/uL (150-450); RED BLOOD COUNT 6.56 10^6/uL (4.30-6.10); WHITE BLOOD COUNT 8.8 10^3/uL (4.0-10.0)
[2024-04-30 13:18] LABS: HEMOGLOBIN A1c 6.3 % (4.0-6.0)
[2024-04-30 13:21] LABS: PROSTATIC SPECIFIC AG MONITOR 0.75 NG/ML (< 4.00)
[2024-04-30 13:25] LABS: THYROID STIMULATING HORMONE 0.953 uIU/ML (0.55-4.78)
[2024-04-30 13:26] LABS: TOTAL 25(OH) VITAMIN D 95.4 NG/ML (20.0-100.0)
[2024-04-30 15:09] LABS: ALBUMIN 3.6 G/DL (3.2-5.2); BILIRUBIN,TOTAL 0.4 MG/DL (0.3-1.2); CALCIUM LEVEL 9.6 MG/DL (8.3-10.6); CHOLESTEROL RISK RATIO 4.85 (<5); CREATININE FOR GFR 1.34 MG/DL (0.70-1.30); GLOMERULAR FILTRATION RATE 55.8 (>42); HDL CHOLESTEROL 48.4 MG/DL (>40); LDL CHOLESTEROL 160.6 MG/DL (<100); NON-HDL-C 186.6 MG/DL; POTASSIUM SERUM 4.1 MMOL/L (3.5-5.1)
== END ==
LOC: M RAD 11:48 → M LAB 11:48
PROVIDERS: ATTEND Family Medicine
DX: I10 Essential (primary) hypertension (principal); R53.83 Other fatigue; R97.20 Elevated prostate specific antigen [PSA]

== ENCOUNTER → 2024-05-09 | Outpatient (CLI) | payer MEDICAID, MEDICARE | LOC: M RAD 11:51 | PROVIDERS: ATTEND Family Medicine | DX: M51.369 Other intervertebral disc degeneration, lumbar region without mention of lumbar back pain or lower extremity pain (principal); M54.30 Sciatica, unspecified side ==

== ENCOUNTER → 2024-07-18 | Outpatient (CLI) | payer MEDICARE, OTHER | LOC: M RAD 10:24 | PROVIDERS: ATTEND Family Medicine | DX: J98.01 Acute bronchospasm (principal); J18.1 Lobar pneumonia, unspecified organism ==

== ENCOUNTER → 2024-07-29 | Outpatient (CLI) | payer MEDICARE, OTHER | LOC: M RAD 10:37 | PROVIDERS: ATTEND Family Medicine | DX: J18.9 Pneumonia, unspecified organism (principal) ==

== ENCOUNTER → 2025-03-26 | Outpatient (REF) | payer MEDICARE | LOC: M LAB REF 13:54 | PROVIDERS: ATTEND Physician Assistant Medical | DX: E29.1 Testicular hypofunction (principal) ==

== ENCOUNTER → 2025-03-30 | Outpatient (CLI) | payer MEDICARE | LOC: M RAD 10:25 | PROVIDERS: ATTEND Physician Assistant Medical | DX: M54.50 Low back pain, unspecified (principal); M47.816 Spondylosis without myelopathy or radiculopathy, lumbar region ==